=== PATIENT | female | born 1955 | race Caucasian/White ===

== ENCOUNTER 2022-12-02 13:52 | Inpatient (IN) ==
[2022-12-02] MEDS ORDERED: Ondansetron 4 mg VIAL 2 MG/ML 2 ml VIAL IV ONE (14:14)
[2022-12-02] MEDS ORDERED: NS 0.9% 1000 ml BAG 1,000 ML IV ONE (14:14)
[2022-12-02] MEDS ORDERED: Pantoprazole VIAL 40 MG VIAL IV ONE (14:24)
[2022-12-02] MEDS ORDERED: Labetalol IV 5 MG/ML 20 ml VIAL IV PUSH ONE ×2 (14:33→15:51)
[2022-12-02 15:52] LABS: Albumin 4.1 g/dL (3.2-5.2); Magnesium 1.8 mg/dL (1.9-2.7); Total Bilirubin 0.8 mg/dL (0.2-1.0)
[2022-12-02 15:54] LABS: Microcytosis 3+; Tear Drop Cells 1+
[2022-12-02 15:55] LABS: Anisocytosis 2+
[2022-12-02 15:56] LABS: ABS Lymphocytes 0.9 10^3/ul (1.0-4.8); ABS Monocytes 0.2 10^3/ul (0-0.8); ABS Neutrophils 5.5 10^3/ul (1.5-7.7); Hematocrit 35 % (35-47); Hemoglobin 10.4 g/dL (12.0-16.0); Lymphocyte % 13.2 %; Mean Corpuscular HGB Conc 30 g/dL (31-36); Mean Corpuscular Hemoglobin 20 pg (27-31); Mean Corpuscular Volume 68 fL (80-97); Mean Platelet Volume 8.3 fL (7.4-10.4); Platelet Count 222 10^3/uL (150-450); Red Blood Count 5.12 10^6 /uL (3.70-4.87); Red Cell Distribution Width 20 % (10-15); White Blood Count 6.7 10^3/uL (3.5-10.8)
[2022-12-02 15:58] LABS: Albumin/Globulin Ratio 1.1 (1-3); Creatinine, Serum 0.76 mg/dL (0.51-0.95); Globulin 3.9 g/dL (2-4); eGFR CKD-EPI 86.4 (>60)
[2022-12-02] MEDS ORDERED: hydrALAZINE 20 mg/ml 1 ML Vial IV IV SLOW PU ONE (16:44)
[2022-12-02 16:48] LABS: High Sensitivity Troponin 1 Hr 9 pg/mL (<15)
[2022-12-02] MEDS: KCL 20 MEQ/100 ML IVPREMIX 20 MEQ/100 ML BAG IV SCH ×3 (17:49→23:22)
[2022-12-02] MEDS ORDERED: Metoclopramide 5 MG/ML VIAL (10 mg) IV SLOW PU ONE (17:56)
[2022-12-02] MEDS ORDERED: Morphine 4 MG/ML VIAL (1 ml) IV ONE (17:59)
[2022-12-02] MEDS ORDERED: Magnesium Sulfate 2 gm BAG 2 GM/50 ML BAG IVPB ONE (18:28)
[2022-12-02] MEDS ORDERED: Prochlorperazine 5 mg/ml 2 ml VIAL (10 mg) IV SCH (20:00)
[2022-12-02] MEDS ORDERED: Scopolamine 1 mg/72hr PATCH TRANSDERM SCH (20:00)
[2022-12-02] MEDS: Lactated Ringers 1000 ml BAG 1,000 ML IV SCH (20:20)
[2022-12-02] MEDS: Ondansetron ODT 4 mg TAB 4 MG TAB SL SCH ×2 (20:21→21:41)
[2022-12-02 21:32] LABS: C Reactive Protein 10.69 mg/L (<8.01)
[2022-12-02] MEDS ORDERED: Acetaminophen IV 1 GM/100ML 1,000 MG/100 ML BAG IV PRN (22:36)
[2022-12-02] MEDS: Pantoprazole 80 mg in NS BAG 80 MG/250 ML BAG IV SCH (23:22)
[2022-12-02] MEDS: OLANZapine 5 mg TAB *ODT PO SCH (23:32)
[2022-12-02] MEDS: Senna TAB 8.6 mg TAB PO SCH (23:32)
[2022-12-02] MEDS ORDERED: Iodixanol (CONTRAST) 320 MG/ML 100 ML SDV IV ONE (23:59)
[2022-12-03 00:25] LABS: Phosphorus 4.6 mg/dL (2.5-5.0)
[2022-12-03] MEDS: Metoclopramide 5 MG/ML VIAL (10 mg) IV SLOW PU SCH ×4 (00:43→17:57)
[2022-12-03 00:53] LABS: TSH Ultra Thyroid Stim Horm 2.46 mcIU/mL (0.34-5.60)
[2022-12-03 01:42] LABS: Ferritin 22.7 ng/mL (11-307)
[2022-12-03] MEDS: KCL 20 MEQ/100 ML IVPREMIX 20 MEQ/100 ML BAG IV SCH ×2 (03:13→05:26)
[2022-12-03 06:21] LABS: INR 1.11 (0.88-1.18)
[2022-12-03 06:22] LABS: ABS Basophils 0.1 10^3/ul (0-0.2); ABS Lymphocytes 1.6 10^3/ul (1.0-4.8); ABS Monocytes 0.5 10^3/ul (0-0.8); ABS Neutrophils 6.4 10^3/ul (1.5-7.7); Eosinophil % 0.1 %; Hematocrit 33 % (35-47); Hemoglobin 9.7 g/dL (12.0-16.0); Lymphocyte % 18.9 %; Mean Corpuscular HGB Conc 30 g/dL (31-36); Mean Corpuscular Hemoglobin 20 pg (27-31); Mean Corpuscular Volume 68 fL (80-97); Mean Platelet Volume 8.1 fL (7.4-10.4); Nucleated Red Blood Cells % 0.1; Platelet Count 216 10^3/uL (150-450); Red Blood Count 4.82 10^6 /uL (3.70-4.87); Red Cell Distribution Width 20 % (10-15); White Blood Count 8.6 10^3/uL (3.5-10.8)
[2022-12-03 06:49] LABS: Calcium 8.6 mg/dL (8.6-10.3); Creatinine, Serum 0.74 mg/dL (0.51-0.95); eGFR CKD-EPI 89.2 (>60)
[2022-12-03] MEDS ORDERED: Labetalol IV 5 MG/ML 20 ml VIAL IV PUSH ONE ×2 (08:04→20:24)
[2022-12-03] MEDS: CMCS: Estradiol 1 mg TAB (NF) PO SCH (11:51)
[2022-12-03] MEDS: Polyethylene Glycol 3350 17 GM PACKET PO SCH (11:51)
[2022-12-03] MEDS: OLANZapine 5 mg TAB *ODT PO SCH ×2 (11:51→22:39)
[2022-12-03] MEDS: Pantoprazole 80 mg in NS BAG 80 MG/250 ML BAG IV SCH ×2 (12:11→17:15)
[2022-12-03] MEDS ORDERED: Labetalol IV 5 MG/ML 20 ml VIAL IV PUSH PRN (12:38)
[2022-12-03] MEDS: Lactated Ringers 1000 ml BAG 1,000 ML IV SCH (13:09)
[2022-12-03] MEDS ORDERED: Sodium Phosphate ADULT ENEMA 133 ML BTL PR ONE (14:08)
[2022-12-03] MEDS ORDERED: Magnesium Hydroxide LIQ 30 ML UDC PO PRN (17:18)
[2022-12-03] MEDS ORDERED: Glycerin ADULT 2.4 gm SUPP PR ONE (17:18)
[2022-12-03] MEDS: Labetalol IV 5 MG/ML 20 ml VIAL IV PUSH PRN (19:12)
[2022-12-03] MEDS ORDERED: Ondansetron 4 mg VIAL 2 MG/ML 2 ml VIAL IV ONE (20:23)
[2022-12-03] MEDS ORDERED: PEG 3000 GI LAVAGE 1 GALLON PO ONE (20:25)
[2022-12-03] MEDS ORDERED: Metoclopramide 5 MG/ML VIAL (10 mg) IV PRN (20:28)
[2022-12-03] MEDS: Senna TAB 8.6 mg TAB PO SCH (22:40)
[2022-12-04] MEDS: Labetalol IV 5 MG/ML 20 ml VIAL IV PUSH PRN (02:34)
[2022-12-04 06:50] LABS: ABS Basophils 0.1 10^3/ul (0-0.2); ABS Eosinophils 0.1 10^3/ul (0-0.6); ABS Lymphocytes 2.5 10^3/ul (1.0-4.8); ABS Monocytes 0.6 10^3/ul (0-0.8); ABS Neutrophils 5.7 10^3/ul (1.5-7.7); Eosinophil % 0.9 %; Hematocrit 30 % (35-47); Hemoglobin 9.3 g/dL (12.0-16.0); Lymphocyte % 28.3 %; Mean Corpuscular HGB Conc 31 g/dL (31-36); Mean Corpuscular Hemoglobin 21 pg (27-31); Mean Corpuscular Volume 67 fL (80-97); Mean Platelet Volume 7.3 fL (7.4-10.4); Platelet Count 197 10^3/uL (150-450); Red Blood Count 4.46 10^6 /uL (3.70-4.87); Red Cell Distribution Width 20 % (10-15)
[2022-12-04 07:11] LABS: C Reactive Protein 3.84 mg/L (<8.01); Calcium 8.6 mg/dL (8.6-10.3); Creatinine, Serum 0.73 mg/dL (0.51-0.95); Potassium 2.8 mmol/L (3.5-5.0); eGFR CKD-EPI 90.6 (>60)
[2022-12-04] MEDS ORDERED: Potassium Chlor 20 meq TAB.ER PO ONE ×3 (08:48→12:00)
[2022-12-04] MEDS: CMCS: Estradiol 1 mg TAB (NF) PO SCH (09:24)
[2022-12-04] MEDS: OLANZapine 5 mg TAB *ODT PO SCH ×2 (09:25→21:48)
[2022-12-04] MEDS ORDERED: Glycerin ADULT 2.4 gm SUPP PR ONE (11:15)
[2022-12-04] MEDS: Polyethylene Glycol 3350 17 GM PACKET PO SCH (11:52)
[2022-12-04] MEDS ORDERED: Phenylephrine 40 mcg/mL 10mL (400mcg) SYRINGE ONE ×2 (15:44→16:41)
[2022-12-04] MEDS: KCL 20 MEQ/100 ML IVPREMIX 20 MEQ/100 ML BAG IV SCH ×2 (18:34→21:42)
[2022-12-04] MEDS: Senna TAB 8.6 mg TAB PO SCH (21:50)
[2022-12-05 06:44] LABS: ABS Basophils 0.1 10^3/ul (0-0.2); ABS Eosinophils 0.2 10^3/ul (0-0.6); ABS Lymphocytes 1.9 10^3/ul (1.0-4.8); ABS Monocytes 0.6 10^3/ul (0-0.8); ABS Neutrophils 4.8 10^3/ul (1.5-7.7); Eosinophil % 2.2 %; Hematocrit 32 % (35-47); Hemoglobin 9.5 g/dL (12.0-16.0); Lymphocyte % 25.9 %; Mean Corpuscular HGB Conc 30 g/dL (31-36); Mean Corpuscular Hemoglobin 21 pg (27-31); Mean Corpuscular Volume 69 fL (80-97); Mean Platelet Volume 8.3 fL (7.4-10.4); Platelet Count 175 10^3/uL (150-450); Red Blood Count 4.62 10^6 /uL (3.70-4.87); Red Cell Distribution Width 20 % (10-15); White Blood Count 7.5 10^3/uL (3.5-10.8)
[2022-12-05 07:03] LABS: Calcium 8.3 mg/dL (8.6-10.3); Creatinine, Serum 0.79 mg/dL (0.51-0.95); Magnesium 1.8 mg/dL (1.9-2.7); Potassium 3.1 mmol/L (3.5-5.0); eGFR CKD-EPI 82.4 (>60)
[2022-12-05] MEDS ORDERED: Magnesium Sulfate 2 gm BAG 2 GM/50 ML BAG IVPB ONE (08:36)
[2022-12-05] MEDS ORDERED: Potassium Chlor 20 meq TAB.ER PO ONE ×2 (08:37→13:00)
[2022-12-05] MEDS: OLANZapine 5 mg TAB *ODT PO SCH (09:25)
[2022-12-05] MEDS: Polyethylene Glycol 3350 17 GM PACKET PO SCH (09:25)
[2022-12-05] MEDS: CMCS: Estradiol 1 mg TAB (NF) PO SCH (09:35)
[2022-12-05 09:56] VITALS: BP 134/74
[2022-12-05 09:57] LABS: Rapid COVID-19 Molecular Undetected (Undetected)
== END 2022-12-05 13:21 | DRG 381 ==
LOC: ED 13:52 → EDHOLD 18:30 → MED 12-03 13:29
PROVIDERS: ADMIT Internal Medicine Hematology & Oncology; ATTEND Internal Medicine Hematology & Oncology
PROC: O.GIEGD (2022-12-04 15:55)

== ENCOUNTER 2024-06-08 20:54 | Inpatient (IN) ==
[2024-06-08] MEDS: levETIRAcetam 1000MG IVPREMIX 1,000 MG/100 ML BAG IVPB ONE (21:00)
[2024-06-08] MEDS: LORazepam 2 mg VIAL 1 ml IV PUSH ONE (21:00)
[2024-06-08 21:20] LABS: ABS Basophils 0.1 10^3/uL (0.0-0.1); ABS Lymphocytes 2.3 10^3/uL (1.0-4.8); ABS Monocytes 0.3 10^3/uL (0.0-0.9); ABS Neutrophils 4.5 10^3/uL (1.5-7.6); ABS Nucleated RBC 0.01 10^3/ul; Hemoglobin 13.3 g/dL (11.5-14.3); Lymphocyte % 32.1 %; Mean Corpuscular Hemoglobin 31.4 pg (27-33); Mean Corpuscular Hgb Conc 34.2 g/dL (31-36); Mean Corpuscular Volume 91.9 fL (80-97); Mean Platelet Volume 7.9 fL (7.5-11.2); Nucleated Red Blood Cells % 0.1 %/100WBC (0.0-0.8); Platelet Count 150 10^3/uL (150-450); Red Blood Count 4.24 10^6/uL (3.63-4.92); Red Cell Distribution Width 16.7 % (12-17); White Blood Count 7.3 10^3/uL (3.8-11.8)
[2024-06-08 21:31] LABS: Activated Partial Thrombo Time 30.9 seconds (26.0-38.0); INR 1.07 (0.85-1.14)
[2024-06-08 21:37] LABS: High Sens Troponin Baseline 116 pg/mL (<15)
[2024-06-08] MEDS ORDERED: Acetaminophen IV 1 GM/100ML 1,000 MG/100 ML BAG IV ONE (21:39)
[2024-06-08] MEDS: Acetaminophen IV 1 GM/100ML 1,000 MG/100 ML BAG IV ONE (21:42)
[2024-06-08 21:44] LABS: Anion Gap 12 mmol/L (2-16); Blood Urea Nitrogen 19 mg/dL (6-24); C Reactive Protein 3.02 mg/L (<8.01); CO2 Carbon Dioxide 22 mmol/L (22-32); Chloride 106 mmol/L (101-111); Creatinine, Serum 1.22 mg/dL (0.51-0.95); Glucose 160 mg/dL (70-100); Potassium 3.2 mmol/L (3.5-5.0); Sodium 140 mmol/L (135-145); eGFR CKD-EPI 48.6 (>60)
[2024-06-08 21:46] LABS: ALT < 3 U/L (7-52); AST 12 U/L (13-39); Albumin 3.9 g/dL (3.2-5.2); Albumin/Globulin Ratio 1.4 (1-3); Alkaline Phosphatase 61 U/L (35-149); Cholesterol 233 mg/dL; Globulin 2.8 g/dL (2-4); HDL Cholesterol 52.1 mg/dL; LDL Cholesterol 148 mg/dL; Total Bilirubin 0.5 mg/dL (0.2-1.0); Total Protein 6.7 g/dL (6.4-8.9); Triglycerides 166 mg/dL
[2024-06-08] MEDS: Iodixanol (CONTRAST) 320 MG/ML 100 ML SDV IV ONE (21:48)
[2024-06-08 21:58] LABS: TSH Ultra Thyroid Stim Horm 1.59 mcIU/mL (0.34-5.60)
[2024-06-08] MEDS: LACTATED RINGERS SEPSIS IV ONE (21:59)
[2024-06-08 22:00] LABS: Free T4 1.21 ng/dL (0.61-1.12)
[2024-06-08] MEDS: Piperacillin/Tazobac 3.375 BAG 3.375 GM/100 ML BAG IV ONE (22:00)
[2024-06-08 22:04] LABS: Prolactin 21.4 ng/mL (1.0-25.0)
[2024-06-08 22:09] LABS: Urine Appearance Clear; Urine Bacteria 3+ /HPF (Absent); Urine Bilirubin Negative (Negative); Urine Blood 1+ (Negative); Urine Color Yellow; Urine Glucose Negative (Negative); Urine Ketones 1+ (Negative); Urine Nitrite Negative (Negative); Urine Protein 1+ (>=30 mg/dL) (Negative); Urine Red Blood Cell 3+(>10/hpf) /HPF (0-Trace); Urine Specific Gravity >1.050 (1.002-1.030); Urine Squamous Epithelial Cell Present /HPF (Absent); Urine Urobilinogen Negative (Negative); Urine White Blood Cell 3+(>20/hpf) /HPF (0-Trace); Urine pH 6.5 (5.0-8.0)
[2024-06-08] MEDS: Norepinephrine 4 MG/250mL D5W 4,000 MCG/250 ML BAG IV SCH (22:11)
[2024-06-08] MEDS: Vancomycin 1,000 MG in NS 0.9% 250 ml 250 ML IVPB ONE (22:17)
[2024-06-08 22:47] LABS: High Sensitivity Troponin 1 Hr 105 pg/mL (<15)
[2024-06-09] MEDS: levETIRAcetam 1000MG IVPREMIX 1,000 MG/100 ML BAG IVPB ONE ×2 (00:09→00:10)
[2024-06-09 00:40] LABS: Vitamin B12 606 pg/mL (180-914)
[2024-06-09] MEDS: cefTRIAXone 2 gm/50 mL D5W 2 GM/50 ML BAG IV SCH (00:47)
[2024-06-09] MEDS: KCL 20 MEQ/100 ML IVPREMIX 20 MEQ/100 ML BAG IV SCH (00:50)
[2024-06-09] MEDS ORDERED: Vancomycin per Pharmacy 1 EA NOTE FOLLOW UP SCH (01:00)
[2024-06-09] MEDS: Ampicillin ADVAN 2 GM in NS 0.9% 100 ml BAG 100 ML IVPB SCH (01:45)
[2024-06-09] MEDS: ACYCLOVIR IVPB SCH (02:15)
[2024-06-09] MEDS: NS 0.9% IVPB SCH (02:15)
[2024-06-09 05:59] LABS: ABS Basophils 0.1 10^3/uL (0.0-0.1); ABS Lymphocytes 2.9 10^3/uL (1.0-4.8); ABS Monocytes 0.5 10^3/uL (0.0-0.9); ABS Neutrophils 3.1 10^3/uL (1.5-7.6); ABS Nucleated RBC 0.01 10^3/ul; Eosinophil % 0.1 %; Hematocrit 30.5 % (35-45); Hemoglobin 10.3 g/dL (11.5-14.3); Mean Corpuscular Hgb Conc 33.9 g/dL (31-36); Mean Corpuscular Volume 91.4 fL (80-97); Mean Platelet Volume 7.9 fL (7.5-11.2); Nucleated Red Blood Cells % 0.1 %/100WBC (0.0-0.8); Platelet Count 109 10^3/uL (150-450); Red Blood Count 3.33 10^6/uL (3.63-4.92); Red Cell Distribution Width 16.4 % (12-17); White Blood Count 6.6 10^3/uL (3.8-11.8)
[2024-06-09 06:41] LABS: Calcium 7.6 mg/dL (8.6-10.3); Creatinine, Serum 0.95 mg/dL (0.51-0.95); Magnesium 1.7 mg/dL (1.9-2.7); Potassium 3.3 mmol/L (3.5-5.0); eGFR CKD-EPI 65.7 (>60)
[2024-06-09] MEDS: levETIRAcetam 500 MG IVPREMIX 500 MG/100 ML BAG IV SCH (09:00)
[2024-06-09] MEDS: Pantoprazole VIAL 40 MG VIAL IV SCH (09:06)
[2024-06-09] MEDS: Heparin 5000 UNITS/ML 1 mL VIAL SUBCUT SCH (09:06)
[2024-06-09] MEDS: Vancomycin 500 MG in NS 0.9% 250 ML IVPB SCH (09:49)
[2024-06-09 13:26] LABS: Body Fluid Source Cerebral Spinal
[2024-06-09 13:37] LABS: Body Fluid Appearance Clear; Body Fluid Color Colorless; CSF Tube # 4
[2024-06-09 13:44] LABS: CSF Glucose 69 mg/dL (40-70)
[2024-06-09 13:51] LABS: CSF Body Fluid WBC 0 /mcL
[2024-06-09 14:56] LABS: Body Fluid Total Cells Counted 3
[2024-06-09] MEDS: Lidocaine 1% w EPI 1:100,000 MDV 50 ML VIAL INJ ONE (15:53)
[2024-06-09] MEDS: Lidocaine 1% w EPI 1:100,000 MDV 20 ML VIAL INJ ONE (15:57)
[2024-06-09] MEDS ORDERED: Ampicillin ADVAN 2 GM in NS 0.9% 100 ml BAG 100 ML IVPB SCH (19:30)
[2024-06-09] MEDS ORDERED: Vancomycin 500 MG in NS 0.9% 250 ML IVPB SCH (22:00)
[2024-06-10] MEDS: cefTRIAXone 2 gm/50 mL D5W 2 GM/50 ML BAG IV SCH (01:29)
[2024-06-10] MEDS ORDERED: ACYCLOVIR IVPB SCH (02:00)
[2024-06-10] MEDS ORDERED: NS 0.9% IVPB SCH (02:00)
[2024-06-10 04:34] LABS: Hemoglobin 9.7 g/dL (11.5-14.3); Mean Corpuscular Hemoglobin 31.7 pg (27-33); Mean Corpuscular Hgb Conc 34.4 g/dL (31-36); Red Blood Count 3.05 10^6/uL (3.63-4.92); Red Cell Distribution Width 16.8 % (12-17); White Blood Count 4.4 10^3/uL (3.8-11.8)
[2024-06-10 04:35] LABS: INR 1.14 (0.85-1.14)
[2024-06-10 05:25] LABS: Calcium 8.1 mg/dL (8.6-10.3); Creatinine, Serum 0.84 mg/dL (0.51-0.95); Magnesium 1.6 mg/dL (1.9-2.7); Potassium 3.1 mmol/L (3.5-5.0); eGFR CKD-EPI 76.1 (>60)
[2024-06-10] MEDS: Magnesium Sulfate 2 gm BAG 2 GM/50 ML BAG IVPB ONE ×2 (06:40→10:24)
[2024-06-10 07:21] LABS: ABS Basophils 0.1 10^3/uL (0.0-0.1); ABS Eosinophils 0.1 10^3/uL (0.0-0.5); ABS Lymphocytes 1.9 10^3/uL (1.0-4.8); ABS Monocytes 0.3 10^3/uL (0.0-0.9); ABS Nucleated RBC 0.01 10^3/ul; Eosinophil % 1.7 %; Lymphocyte % 44.3 %; Nucleated Red Blood Cells % 0.1 %/100WBC (0.0-0.8); Platelet Count 80 10^3/uL (150-450)
[2024-06-10] MEDS ORDERED: Zosyn per Pharmacy NOTE FOLLOW UP SCH (09:00)
[2024-06-10] MEDS ORDERED: Vancomycin Trough Check NOTE FOLLOW UP ONE (09:30)
[2024-06-10] MEDS: KCL 20 MEQ/100 ML IVPREMIX 20 MEQ/100 ML BAG IV SCH ×2 (10:25→13:45)
[2024-06-10] MEDS: Lidocaine PATCH 5% PATCH TRANSDERM SCH (10:25)
[2024-06-10] MEDS ORDERED: Dextrose 50% Syringe 50 ml 25 GM/50 ML SYRINGE IV PUSH PRN (11:27)
[2024-06-10] MEDS ORDERED: KCL 20 MEQ/100 ML IVPREMIX 20 MEQ/100 ML BAG IV SCH (13:30)
[2024-06-10] MEDS: ZOSYN 3.375 GM x ONE DOSE over 30 miuntes IV ×2 (13:44→13:46)
[2024-06-10] MEDS: ZOSYN 3.375 GM Q8H per EXTENDED INFUSION IV SCH (17:18)
[2024-06-10] MEDS: Senna TAB 8.6 mg TAB PO SCH (18:22)
[2024-06-11 06:34] LABS: Calcium 7.7 mg/dL (8.6-10.3); Creatinine, Serum 0.81 mg/dL (0.51-0.95); Potassium 3.2 mmol/L (3.5-5.0); eGFR CKD-EPI 79.5 (>60)
[2024-06-11 06:37] LABS: ABS Eosinophils 0.1 10^3/uL (0.0-0.5); ABS Lymphocytes 1.5 10^3/uL (1.0-4.8); ABS Monocytes 0.3 10^3/uL (0.0-0.9); ABS Neutrophils 1.8 10^3/uL (1.5-7.6); Eosinophil % 2.2 %; Hematocrit 27.7 % (35-45); Hemoglobin 9.3 g/dL (11.5-14.3); Lymphocyte % 39.2 %; Mean Corpuscular Hemoglobin 31.2 pg (27-33); Mean Corpuscular Hgb Conc 33.7 g/dL (31-36); Mean Corpuscular Volume 92.5 fL (80-97); Mean Platelet Volume 7.4 fL (7.5-11.2); Nucleated Red Blood Cells % 0.1 %/100WBC (0.0-0.8); Platelet Count 68 10^3/uL (150-450); Red Blood Count 2.99 10^6/uL (3.63-4.92); White Blood Count 3.7 10^3/uL (3.8-11.8)
[2024-06-11] MEDS: KCL 20 MEQ/100 ML IVPREMIX 20 MEQ/100 ML BAG IV SCH (08:43)
[2024-06-11] MEDS: DOXYcycline 100 MG in NS 0.9% 250 ml 250 ML IVPB SCH (10:07)
[2024-06-11] MEDS: Amoxicillin/Clavul 875/125 TAB (Augmentin 875 tab) PO SCH (11:09)
[2024-06-12 06:09] LABS: ABS Eosinophils 0.1 10^3/uL (0.0-0.5); ABS Lymphocytes 1.8 10^3/uL (1.0-4.8); ABS Monocytes 0.2 10^3/uL (0.0-0.9); ABS Neutrophils 1.4 10^3/uL (1.5-7.6); ABS Nucleated RBC 0.01 10^3/ul; Eosinophil % 2.5 %; Hematocrit 27.7 % (35-45); Hemoglobin 9.4 g/dL (11.5-14.3); Lymphocyte % 51.4 %; Mean Corpuscular Hemoglobin 31.1 pg (27-33); Mean Corpuscular Hgb Conc 33.8 g/dL (31-36); Mean Corpuscular Volume 92.2 fL (80-97); Mean Platelet Volume 7.5 fL (7.5-11.2); Nucleated Red Blood Cells % 0.2 %/100WBC (0.0-0.8); Platelet Count 59 10^3/uL (150-450); Red Cell Distribution Width 16.1 % (12-17); White Blood Count 3.6 10^3/uL (3.8-11.8)
[2024-06-12 06:13] LABS: Calcium 7.6 mg/dL (8.6-10.3); Creatinine, Serum 0.7 mg/dL (0.51-0.95); Magnesium 1.8 mg/dL (1.9-2.7); Potassium 3.5 mmol/L (3.5-5.0); eGFR CKD-EPI 94.7 (>60)
[2024-06-12] MEDS: Magnesium Sulfate 2 gm BAG 2 GM/50 ML BAG IVPB ONE (08:09)
[2024-06-13 05:15] LABS: ABS Eosinophils 0.1 10^3/uL (0.0-0.5); ABS Lymphocytes 1.7 10^3/uL (1.0-4.8); ABS Monocytes 0.2 10^3/uL (0.0-0.9); ABS Neutrophils 1.5 10^3/uL (1.5-7.6); ABS Nucleated RBC 0.01 10^3/ul; Eosinophil % 2.1 %; Hematocrit 28.2 % (35-45); Hemoglobin 9.6 g/dL (11.5-14.3); Lymphocyte % 49.1 %; Mean Corpuscular Hemoglobin 31.5 pg (27-33); Mean Corpuscular Volume 92.7 fL (80-97); Mean Platelet Volume 7.5 fL (7.5-11.2); Nucleated Red Blood Cells % 0.2 %/100WBC (0.0-0.8); Platelet Count 53 10^3/uL (150-450); Red Blood Count 3.05 10^6/uL (3.63-4.92); Red Cell Distribution Width 16.5 % (12-17); White Blood Count 3.5 10^3/uL (3.8-11.8)
[2024-06-13 05:55] LABS: Calcium 7.9 mg/dL (8.6-10.3); Creatinine, Serum 0.7 mg/dL (0.51-0.95); Potassium 3.4 mmol/L (3.5-5.0); eGFR CKD-EPI 94.7 (>60)
[2024-06-13 07:17] LABS: Magnesium 1.8 mg/dL (1.9-2.7)
[2024-06-13] MEDS: Potassium Chloride LIQUID 20 MEQ/15 ML LIQUID PO ONE (08:22)
[2024-06-13] MEDS: Magnesium Sulfate 2 gm BAG 2 GM/50 ML BAG IVPB ONE (10:58)
[2024-06-13] MEDS: KCL 20 MEQ/100 ML IVPREMIX 20 MEQ/100 ML BAG IV SCH (11:00)
[2024-06-13 23:11] LABS: Anaplasma phagocytophilum Negative (Negative); B. miyamotoi PCR, B Negative (Negative); Babesia divergens/MO-1 Negative (Negative); Babesia ducani Negative (Negative); Ehrlichia chaffeensis Negative (Negative); Ehrlichia ewingii/canis Negative (Negative); Ehrlichia muris eauclairensis Negative (Negative)
[2024-06-14 04:44] LABS: ABS Eosinophils 0.1 10^3/uL (0.0-0.5); ABS Lymphocytes 1.9 10^3/uL (1.0-4.8); ABS Monocytes 0.2 10^3/uL (0.0-0.9); ABS Neutrophils 1.5 10^3/uL (1.5-7.6); ABS Nucleated RBC 0.01 10^3/ul; Hematocrit 24.1 % (35-45); Hemoglobin 8.3 g/dL (11.5-14.3); Lymphocyte % 49.9 %; Mean Corpuscular Hgb Conc 34.4 g/dL (31-36); Mean Platelet Volume 7.6 fL (7.5-11.2); Nucleated Red Blood Cells % 0.3 %/100WBC (0.0-0.8); Platelet Count 50 10^3/uL (150-450); Red Blood Count 2.59 10^6/uL (3.63-4.92); Red Cell Distribution Width 16.7 % (12-17); White Blood Count 3.7 10^3/uL (3.8-11.8)
[2024-06-14 05:52] LABS: Calcium 7.7 mg/dL (8.6-10.3); Creatinine, Serum 0.76 mg/dL (0.51-0.95); Potassium 3.4 mmol/L (3.5-5.0); eGFR CKD-EPI 85.8 (>60)
[2024-06-14] MEDS: Potassium Chlor 10 meq TAB PO ONE (10:04)
[2024-06-14] MEDS: cefTRIAXone 1 gm/50 mL D5W 1 GM/50 ML BAG IV SCH (10:07)
[2024-06-14] MEDS ORDERED: Potassium Chloride LIQUID 20 MEQ/15 ML LIQUID PO ONE (10:14)
[2024-06-14] MEDS: Potassium Chlor 20 meq TAB.ER PO ONE (10:53)
[2024-06-14 11:33] VITALS: BP 115/80
[2024-06-14 15:58] LABS: B. burgdorferi PCR Negative (Negative); B. garinii/B. afzellii PCR Negative (Negative)
== END 2024-06-14 11:26 | DRG 871 ==
LOC: ED 20:54 → EDHOLD 06-09 00:03 → ICU 06-09 00:03
PROVIDERS: ADMIT Internal Medicine Pulmonary Disease; ATTEND Internal Medicine Pulmonary Disease